=== PATIENT | male | born 1970 | race Caucasian/White ===

== ENCOUNTER 2017-04-18 19:26 | Emergency (ER) | payer BC ==
[2017-04-18 19:34] VITALS: RESP 18
--- NOTE | 2017-04-18 20:00 | ED ---
Psych HPI - General Chief Complaint: Psychiatric Symptoms Stated Complaint: Mental Health Eval Time Seen by Provider: 04/18/17 19:39 Source: patient Mode of arrival: ambulatory - History of Present Illness Initial Comments: 6 years old male has history of depression for a long time has been taking Effexor but lately he has been very stressed out his son of an accident also bunch of other family issues not getting along well with his significant other with whom he has lived for over 20 years. He thought about not being around will be quick solution to all the stressful situation. He has no history of suicidal attempts in the past has no history of drug overdose he denies any alcohol or street drugs he does have a history of depression. Denies any Medical complaints denies any neck stiffness no chest pain or shortness of breath or abdominal pain no frequency urgency dysuria no symptoms of TIA or CVA - Related Data Home Medications Medication Instructions Recorded Confirmed Lisinopril-Hctz 10-12.5 mg 1 tab PO DAILY 04/18/17 04/18/17 [Zestoretic 10-12.5] Venlafaxine HCl ER [Effexor Xr] 150 mg PO DAILY 04/18/17 04/18/17 Allergies Allergy/AdvReac Type Severity Reaction Status Date / Time cephalexin [From Keflex] Allergy Rash/Hives Verified 04/18/17 19:34 Review of Systems ROS Statement: Those systems with pertinent positive or pertinent negative responses have been documented in the HPI. ROS Other: All systems not noted in ROS Statement are negative. Past Medical History Past Medical History: Hypertension History of Any Multi-Drug Resistant Organisms: None Reported Past Surgical History: No Surgical Hx Reported Past Psychological History: Anxiety, Depression Smoking Status: Former smoker Past Alcohol Use History: Occasional Past Drug Use History: None Reported General Exam - General Exam Comments Initial Comments: General: The patient is awake and alert, in no distress, and does not appear acutely ill. Skin: Skin is warm and dry and no rashes or lesions are noted. Eye: Pupils are equal, round and reactive to light, extra-ocular movements are intact; there is normal conjunctiva bilaterally. Ears, nose, mouth and throat: There are moist mucous membranes and no oral lesions. Neck: The neck is supple, there is no tenderness or JVD. Cardiovascular: There is a regular rate and rhythm. No murmur, rub or gallop is appreciated. Respiratory: To auscultation bilateral, no wheezing no rhonchi no distress respiratory nance noticed Gastrointestinal: Soft, non-distended, non-tender abdomen without masses or organomegaly noted. There is no rebound or guarding present. Bowel sounds are unremarkable. Back: There is no tenderness to palpation in the midline. There is no obvious deformity. Musculoskeletal: Normal ROM, no tenderness, There is no pedal edema. There is no calf tenderness or swelling. No cords were appreciated. Neurological: CN II-XII intact, Cranial nerves III through XII are intact. There are no obvious motor or sensory deficits. Coordination appears grossly intact. Speech is normal. Psychiatric: Cooperative, very depressed and admits to suicidal ideation and I feel he is at the very high risk of self harm in his current situation Limitations: no limitations Course Vital Signs 04/18/17 19:28 Temperature 98.4 F Pulse Rate 103 H Respiratory 18 Rate Blood Pressure 123/82 O2 Sat by Pulse 99 Oximetry - Reevaluation(s) Reevaluation #1: We will consult department of psychiatry and I believe he needs to be admitted for inpatient care 04/18/17 20:00 Disposition Clinical Impression: Major depression, Suicidal ideation Disposition: ADMITTED IP TO THIS HOSP Condition: Good Referrals: None,Stated [Primary Care Provider] - 1-2 days
[2017-04-18] MEDS ORDERED: LORazepam 1 MG TAB PO STA (20:14)
[2017-04-18 21:52] LABS: Amphetamine Screen,Urine Not Detected (NotDetected); Barbiturate Screen,Urine Not Detected (NotDetected); Benzodiazepines Screen,Urine Not Detected (NotDetected); Cocaine Screen,Urine Not Detected (NotDetected); Methadone Screen, Urine Not Detected (NotDetected); Opiate Screen,Urine Not Detected (NotDetected); Oxycodone Screen, Urine Not Detected (NotDetected); Phencyclidine Screen,Urine Not Detected (NotDetected); Tricyclic Antidepressant,Urine Not Detected (NotDetected); Urn Cannabinoid Scrn Not Detected (NotDetected)
[2017-04-18 23:01] VITALS: BP 127/67; PULSE 78; TEMP 98.2
== END 2017-04-18 23:07 | disposition other institution (70) ==
LOC: EC 19:26
DX: F32.9 Major depressive disorder, single episode, unspecified (principal); R45.851 Suicidal ideations; I10 Essential (primary) hypertension; F41.9 Anxiety disorder, unspecified; Z87.891 Personal history of nicotine dependence; Z79.899 Other long term (current) drug therapy; Z88.1 Allergy status to other antibiotic agents
CPT/HCPCS: 80306; 82075; 99284